=== PATIENT | female | born 1975 | race African-American/Black ===

== ENCOUNTER 2017-07-09 13:22 | Observation (INO) | payer OTHER ==
[~2017-07-09] VITALS: Ht 152.4 cm; Wt 131.3 kg
[2017-07-09] VITALS (7 sets, daily range): BP systolic 150–184; BP diastolic 80–92; TEMP 98.2–98.5; Ht 152.4 cm; Wt 131.3 kg
[2017-07-09 14:52] LABS: PLATELET COUNT 425 K/uL (152-353)
[2017-07-09 14:55] LABS: POTASSIUM 3.1 mmol/L (3.6-5.2); SODIUM 136 mmol/L (136-145)
[2017-07-10] VITALS: BP 131/58; BP 157/83; TEMP 98; TEMP 98.1
[2017-07-10 04:00] VITALS: BP 153/78; TEMP 98.2
[2017-07-10 08:00] VITALS: BP 159/93; TEMP 97.6
[2017-07-10 12:11] VITALS: BP 153/79; TEMP 98.2
[2017-07-10 14:16] LABS: PLATELET COUNT 389 K/uL (152-353)
[2017-07-10 14:34] LABS: POTASSIUM 3.4 mmol/L (3.6-5.2); SODIUM 138 mmol/L (136-145)
[2017-07-10 16:00] VITALS: BP 151/80; TEMP 98
--- NOTE | 2017-07-10 16:39 | NUR ---
DISCHARGE INSTRUCTIONS GIVEN TO PATIENT AND . 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 SHEREE JIMENEZ LPN STATED ORDER WILL BE SENT FOR OCCULT BLOOD TO PCP @ [facility]. 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
== END 2017-07-10 16:24 | disposition home or self-care (01) ==
LOC: ED 13:22 → MED/SURG 15:30
PROVIDERS: ADMIT Family Medicine
PROC: 30233N1 Transfusion of Nonautologous Red Blood Cells into Peripheral Vein, Percutaneous Approach (ICD-10-PCS; principal; 2017-07-09)
PROC: 30233N1 Transfusion of Nonautologous Red Blood Cells into Peripheral Vein, Percutaneous Approach (ICD-10-PCS; 2017-07-10)
DX: D64.89 Other specified anemias (principal); R06.09 Other forms of dyspnea; I10 Essential (primary) hypertension
CPT/HCPCS: 36415; 36430; 80053; 81000; 82550; 82728; 83540; 83550; 84100; 84443; 85027; 86850; 86900; 86901; 86922; 93005; 94760; 96360; 96361; 96365; 96366; 99220; 99284; G0378; P9016